=== PATIENT | male | born 1965 | race Caucasian/White ===

== ENCOUNTER 2017-05-09 19:52 | Inpatient (IN) | payer OTHER ==
[~2017-05-09] VITALS: Ht 177.8 cm; Wt 122.6 kg
--- NOTE | 2017-05-10 06:29 | ER ---
ADMIT: 05/09/2017 RM/LOC: 630 [facility] MR#: [id number] [id number] [place], [place] [address] [address] [place] [address] Emergency Room Report SEX: M AGE: 51 : 1965 DATE: 05/09/2017 CHIEF COMPLAINT: Right hand infection. HISTORY OF PRESENT ILLNESS: The patient is a 51-year-old male, complaining of ascending lymphangitis right wrist and hand after what he thought was a bug bite day before yesterday, was seen at urgent care yesterday, given Rocephin and amoxicillin, comes in today with increasing pain, fevers, chills, swelling, and redness up to his mid forearm. PAST MEDICAL HISTORY: ILLNESSES: Hypertension. OPERATIONS: None. ALLERGIES: NONE. MEDICATIONS: Please see nurse's MAR. SOCIAL HISTORY: . 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 Nonsmoker, nondrinker. No illicit drugs. REVIEW OF SYSTEMS: A 12-point review of systems negative for all other systems, illnesses, or operations except as outlined above. PHYSICAL EXAMINATION: VITAL SIGNS: Temp 100.4, pulse 102, respirations 18, BP 139/87, SaO2 of 94% on room air, weight 121 kilos. GENERAL: Toxic-appearing diaphoretic without jaundice or icterus. HEENT: Normocephalic. No evidence of epistaxis, rhinorrhea, or otorrhea. NECK: Supple without lymphadenopathy. CHEST: Clear. Breath sounds equal. HEART: Tachycardic, regular without murmur. ABDOMEN: Obese, nontender, nondistended without mass or megaly. Bowel sounds hypoactive. EXTREMITIES: Ascending lymphangitis right dorsal hand and wrist with evidence of red streaks above his right antecubital fossa. Abrasions are noted over the MCP joint 3rd and 4th MCP. NEURO: EOMI, PERRLA. No evidence of drift, dysarthria, or ataxia. Gait normal. MENTAL STATUS: Alert, oriented, cooperative without delusions, hallucinations, or abnormal thought content. MEDICAL DECISION MAKING: Tetanus status unknown. We will update in ER if ADMIT: 05/09/2017 RM/LOC: 630 [facility] MR#: [id number] [address] [address] [address] A[address] G[address] [place] [address] Emergency Room Report SEX: M AGE: 51 : 1965 needed. The patient was covered with vancomycin and Zosyn, awaiting lab results. WBC 14.1, lactic 1.1, procalcitonin 0.1, CRP 9.73, potassium 3.6. CK- MB, troponin, and BNP all within normal limits. UA; 4 wbc's, 11 rbc's. Chest x- ray, negative. Right hand and wrist shows inflammatory changes, subcutaneous fat, but no air or foreign body noted. Discussed case with Dr. Liz, who agreed and gave orders to nursing staff. DIAGNOSIS: Ascending lymphangitis, right hand and wrist. RECOMMENDATION: Admit inpatient Med/Surg for Dr. Edgar. ADMISSION AND DISCHARGE CONDITION: Stable. The patient is a full code. Cole Munguia MD/ modl JOB #: [id number] CC: Rufino Edgar MD, Attending Physician Rufino Edgar MD, Family Physician
--- NOTE | 2017-05-12 09:10 | CO ---
ADMIT: 05/09/2017 RM/LOC: 630 [facility] MR#: [id number] [address] [facility] [address] [place], [place] [address] ALEX [address] [place] [address] Consultation SEX: M AGE: 51 : 1965 DATE OF CONSULTATION: 05/10/2017 ATTENDING PHYSICIAN: Rufino Edgar CONSULTING PHYSICIAN: Cynthai Vitale MD CHIEF COMPLAINT: Right hand and arm redness, swelling, and pain. HISTORY OF PRESENT ILLNESS: The patient is a 51-year-old male, who came into the ER last night for increasing redness, swelling, and pain of his right hand, wrist, and forearm. He states that he started having right wrist pain Wednesday night, and it continued to get worse on Wednesday; by Wednesday, it was very red and swollen, so he went to the ER. He denies having any acute event that caused pain whether that be a fall, scratch, or bug bite. He does state that he was in [place] 2 to 3 weeks ago and had ticks on him, but did not have any bites from ticks. He was evaluated in the ER last night and put on IV vancomycin for right hand and wrist ascending lymphangitis and cellulitis. Ortho is now being consulted for further care. PAST MEDICAL HISTORY: Includes hypertension. ALLERGIES: NO KNOWN DRUG ALLERGIES. MEDICATIONS: Please see nurse's MAR for complete list of medications. Social history, surgical history, family history, and review of systems were completed and reviewed by Dr. Fontanez's note from the ER, and no changes were made. PHYSICAL EXAMINATION: GENERAL: The patient is lying in a hospital bed, seemingly comfortable, eating breakfast. MUSCULOSKELETAL: Right upper extremity, there is moderate swelling and erythema of the dorsal aspect of the right hand. However, there is no erythema noted on the upper forearm and wrist. There is still a marked area around the dorsal aspect of the hand and up the arm. The erythema on the hand is still contained within the marked area; however, there is no redness within the marked area of the forearm or wrist. There is minimal pain to palpation of the MCP joints of the second through fifth digits; however, no pain to palpation of the DIP or PIP joints of the second through fifth digits. There is no numbness or tingling within the first digit. No pain with range of motion except slight pain with range of motion of the MCP joint. No pain to palpation or with range of motion of the wrist. Neurovascular status is intact. DIAGNOSTIC STUDIES: X-rays of the right wrist and hand, show no acute bony abnormalities. There is some general soft tissue swelling noted. A blood cell count today is 9.1, which is down from 14.1 taken last night. ADMIT: 05/09/2017 RM/LOC: 630 [facility] MR#: [id number] [address] [address] [place] [address] Consultation SEX: M AGE: 51 : 1965 CRP is up to 12.2 from last night, which was 9.73. There is no growth on the blood cultures taken from yesterday. ASSESSMENT: Right hand and wrist ascending lymphangitis and cellulitis. PLAN: At this point, the patient is clinically improving. There is decreased erythema and swelling of the forearm and wrist. No pain with range of motion of the wrist. We will to continue to follow the patient and keep him on IV antibiotics. We will also continue to monitor his blood cultures, CRP, and white blood cell count. Thank you for the consultation. DB Claire / Cynthia Vitale MD / prashant JOB #: [id number] CC: Rufino Edgar, Attending Physician Rufino Edgar, Family Physician
[2017-05-13] MEDS ORDERED: ATACAND32 MG PO (16:59)
[2017-05-13] MEDS ORDERED: ASA CHILDREN'S81 MG PO (16:59)
[2017-05-13] MEDS ORDERED: NORCO 5-325 TA1 EACH PO (17:00)
[2017-05-13] MEDS ORDERED: COLACE-DPS100 MG PO (17:00)
[2017-05-13] MEDS ORDERED: MOTRIN-DPS600 MG PO (17:05)
[2017-05-13] MEDS ORDERED: CLEOCIN HCL300 MG PO (17:05)
[2017-05-13] MEDS ORDERED: VIBRAMYCIN-DPS100 M2 PO (17:06)
--- NOTE | 2017-05-17 08:47 | HP ---
ADMIT: 05/09/2017 RM/LOC: 630 [facility] MR#: [id number] [address] [place], [place] [address] A[address] [place] [address] History and Physical SEX: M AGE: 51 : 1965 DATE OF SERVICE: CHIEF COMPLAINT: Fevers and right hand pain and redness. HISTORY OF PRESENT ILLNESS: Alex is a 51-year-old white male, admitted to [facility] through the emergency room on the evening of May 09, 2017. He presents with some redness and discomfort in his right hand since Wednesday night. He ultimately went to local urgent care. He was given a shot of Rocephin and placed on oral Amoxil on Wednesday. He started having fevers, chills, and sweats and had a temp over 104 and subsequently went to the ER last night with complaint of fevers, chills, redness, and swelling his right arm with streaks going up to the armpit. In the ER, routine cultures were obtained. X-rays and labs were obtained. He was started on vancomycin and Zosyn. PAST MEDICAL HISTORY: Operations include umbilical hernia repair. Illnesses include benign essential hypertension. MEDICATIONS: 1. Candesartan 32 mg daily. 2. Aspirin 81 mg daily. ALLERGIES: NONE KNOWN. SOCIAL HISTORY: A 51-year-old, white male. He does not smoke. He drinks socially. FAMILY HISTORY: Noncontributory. REVIEW OF SYSTEMS: Remarkable for pain, redness, and swelling in his right hand and wrist. Remainder of review of systems negative. PHYSICAL EXAMINATION: VITAL SIGNS: Stable. He has been afebrile since admission through the ER. Of note, he had a fever of 104 in the ER after taking anti-inflammatories and Tylenol. Temperature 98.2, pulse 75, respiratory rate 16, blood pressure 135/84. GENERAL APPEARANCE: This is a 51-year-old male, who is alert, oriented, and in no acute distress. HEENT: Pupils reactive. Membranes are moist. NECK: Without nodes or mass. HEART: Regular without murmur. LUNGS: Clear. ABDOMEN: Soft and benign. and rectal: Deferred. EXTREMITIES: No clubbing, cyanosis, or edema. He has compression stockings. Examination of his right upper extremity shows some diffuse swelling and mild erythema of the right hand with abrasion on the right ring finger, which he states has only been there for a day or so. He states that the redness and ADMIT: 05/09/2017 RM/LOC: 630 [facility] MR#: [id number] [address] [place] [id number] [place] [address] History and Physical SEX: M AGE: 51 : 1965 swelling occurred before that abrasions occurred while he was working on his son's vehicle. He has some streaking and lymphangitis in the right axilla. NEURO: He has normal light touch, strength, DTRs. LABORATORY DATA: Reviewed including a chest x-ray, which is normal. An x-ray of the right hand and wrist that is normal. Sodium 143, potassium 3.7, BUN of 15, creatinine 1.0, glucose 115. Of note, his CRP was 12.2, white count of 9.1, it was 14.1 on admission. Hemoglobin 13.1, platelet count of 136,000, it was 174, lactic acid 0.9, it was 1.1 on admission and UA was normal. Blood cultures were negative. Urine cultures negative. ASSESSMENT: 1. Cellulitis lymphangitis right hand. 2. Benign essential hypertension, well controlled. 3. Obesity. PLAN: Routine cultures were obtained. He was started on vancomycin and Zosyn in the ER. We will continue with his antibiotics, place K-pad. Decrease his IV to keep open. Obtain Orthopedic consult and proceed with further evaluation and management based on course during hospitalization. Rufino Edgar MD/ prashant JOB #: [id number] CC: Rufino Edgar, Attending Physician Rufino Edgar, Family Physician
--- NOTE | 2017-06-21 08:31 | DS ---
ADMIT: 05/09/2017 RM/LOC: 630 [facility] MR#: [id number] [address] [facility] [address] [place], [place] [address] ALEX [address] [place] [id number] General Discharge Summary SEX: M AGE: 51 : 1965 ADMISSION DATE: 05/09/2017 DISCHARGE DATE: 05/12/2017 INDICATION FOR HOSPITALIZATION: Alex is a 51-year-old, , white male, admitted to [facility] through the emergency room on the evening of May 09 after presenting redness, swelling, and discomfort in his right hand on Wednesday night to a local urgent care and being placed on Amoxil after a shot of Rocephin. He developed fevers and chills and sweats, and had a temperature of 104 and had streaking going up his arm and presented to the ER for further evaluation and management. He was subsequently admitted for cellulitis. Please see his admission H and P for further details. HOSPITAL COURSE: On admission, his home medications were reviewed and continued. Fluids and antipyretics were ordered. He was started on IV vancomycin and Zosyn. Routine cultures were obtained. A K-pad was added for his cellulitis and lymphadenitis. Over the first 24 hours, a formal Orthopedic consult was obtained. No surgical intervention was needed, and he was managed with conservative care and improved over the next 48 hours. By May 12, his vital signs were stable. He was afebrile. Blood cultures and urine cultures were negative. He was alert. Erythema had essentially resolved. The swelling in his hand and arm were resolving, and he was discharged to home on oral antibiotic therapy with close followup. LIST OF DISCHARGE MEDICATIONS: 1. Atacand 32 mg daily. 2. Aspirin 81 mg daily. 3. Additionally, he was discharged on Cleocin 300 mg p.o. b.i.d. with food for 10 days. 4. Doxycycline 100 mg b.i.d. for 10 days with followup in the clinic the following week. LABORATORY AND X-RAY DATA: Include on May 10; white count of 9.1, hemoglobin 13.1, platelet count of 136. May 09; white count 14.1, hemoglobin 14.1 with a platelet count of 174,000. May 09; UA is normal. May 09; sodium 142, potassium 3.6, BUN of 17, creatinine 1.2 with glucose 109, total protein 7.5, AST of 30, ALT is 63, Mag of 2.0. Lactic acid 1.1. ADMIT: 05/09/2017 RM/LOC: 630 [facility] MR#: [id number] [address] [address] [place] [address] General Discharge Summary SEX: M AGE: 51 : 1965 Procalcitonin of 0.1 and a CRP of 9.73 on admission. Blood cultures from admit showed no growth. Urine culture showed no growth. X-ray of the right wrist is normal. Chest x-ray is normal. EKG shows sinus tachycardia on admission. FINAL DISCHARGE DIAGNOSIS: Includes: 1. Cellulitis and lymphadenitis of the right arm and hand. 2. Benign essential hypertension, well controlled. 3. Exogenous obesity. PROCEDURES: Include IV antibiotics, fluid and electrolytes, antipyretics and analgesics. Please see his hospital record for further details. Rufino Edgar MD/ prashant JOB #: [id number] CC: Rufino Edgar MD, Attending Physician Rufino Edgar MD, Family Physician
== END 2017-05-12 09:53 | disposition home or self-care (01) | DRG 603 ==
LOC: ER 19:52 → 6PED 22:25 → WOR 05-10 13:14 → 6PED 05-10 13:21
PROVIDERS: ADMIT Family Medicine
DX: L03.113 Cellulitis of right upper limb (principal); Z68.43 Body mass index [BMI] 50.0-59.9, adult; I10 Essential (primary) hypertension; E66.9 Obesity, unspecified; Z79.82 Long term (current) use of aspirin